=== PATIENT | female | born 1995 | race Two or more races ===

== ENCOUNTER 2024-03-22 21:42 | Observation (INO) | payer MEDICAID ==
[~2024-03-22] VITALS: Ht 157.5 cm; Wt 72.6 kg
[2024-03-22] MEDS ORDERED: PREN-96 PO (22:17)
== END 2024-03-22 23:19 | disposition home or self-care (01) ==
LOC: EEVIPCON 21:42 → LDRP 21:42
PROVIDERS: ADMIT Obstetrics & Gynecology; ATTEND Obstetrics & Gynecology
DX: O36.8120 Decreased fetal movements, second trimester, not applicable or unspecified (principal); Z3A.24 24 weeks gestation of pregnancy; Z79.899 Other long term (current) drug therapy; Z98.890 Other specified postprocedural states
CPT/HCPCS: 59025; 81002; 94760; G0378